=== PATIENT | female | born 1960 | race Caucasian/White ===

== ENCOUNTER 2018-08-11 08:48 | Emergency (ER) | payer BC ==
[~2018-08-11] VITALS: Ht 162.6 cm; Wt 90.4 kg
[~2018-08-11 08:48] MED LIST: DIPH-423 PO; IBUP-1051 PO; PRED50TA PO
[2018-08-11 09:19] LABS: BASOPHILS % (AUTO) 0.3 % (0-1); EOSINOPHILS # (AUTO) 0.1 X10'3 (0-0.9); EOSINOPHILS % (AUTO) 1.2 % (0-6); HEMATOCRIT 39.6 % (35.0-45.0); HEMOGLOBIN 13.5 g/dl (12.0-16.0); LYMPHOCYTES # (AUTO) 3.1 X10'3 (1.1-4.8); MEAN CORPUSCULAR HEMOGLOBIN 30.9 PG (27.0-31.0); MEAN CORPUSCULAR VOLUME 90.9 FL (78-98); MEAN PLATELET VOLUME 7.9 FL (7.4-10.4); MONOCYTES # (AUTO) 0.5 X10'3 (0-0.9); MONOCYTES % (AUTO) 6.8 % (2-12); NEUTROPHILS # (AUTO) 4.1 X10'3 (1.8-7.7); NEUTROPHILS % (AUTO) 52.7 % (42-75); PLATELET COUNT 239 X10'3 (140-440); RED BLOOD COUNT 4.36 X10'6 (4.20-5.60); RED CELL DISTRIBUTION WIDTH 12.9 % (11.5-14.5); WHITE BLOOD COUNT 7.8 X10'3 (4.5-11.0)
[2018-08-11 09:35] LABS: INR 1.1 INR; PARTIAL THROMBOPLASTIN TIME 28 SECONDS (22-32); PROTHROMBIN TIME 10.7 SECONDS (9.0-12.0)
[2018-08-11 09:40] LABS: ALANINE AMINOTRANSFERASE 21 U/L (12-78); ALBUMIN 3.7 G/DL (3.4-5.0); ALKALINE PHOSPHATASE 78 IU/L (46-116); ANION GAP 10 (8-16); ASPARTATE AMINO TRANSFERASE 16 U/L (10-37); BILIRUBIN,TOTAL 0.5 MG/DL (0.1-1.0); BLOOD UREA NITROGEN 13 MG/DL (7-18); BUN/CREATININE RATIO 17.6 (6.6-38.0); CALCIUM 9.1 MG/DL (8.5-10.1); CHLORIDE 105 MMOL/L (99-107); CREATININE 0.74 MG/DL (0.40-0.90); GLUCOSE 93 MG/DL (70-104); POTASSIUM 4.1 MMOL/L (3.5-5.1); SODIUM 141 MMOL/L (135-145); TOTAL CARBON DIOXIDE 25.9 MMOL/L (24-32); TOTAL PROTEIN 7.5 G/DL (6.4-8.2); eGFR 81 ML/MIN
[2018-08-11] MEDS ORDERED: predniSONE 20 mg tablet PO ONE (10:00)
[2018-08-11] MEDS ORDERED: ipratropium/albuterol 3ml nebule NEB ONE (10:05)
[2018-08-11] MEDS ORDERED: PRED20TA PO (12:55)
[2018-08-11] MEDS ORDERED: ALBU8.5H8 IH (12:55)
[2018-08-11] MEDS ORDERED: albuterol 2.5 MG/3 ML nebule NEB ONE (12:55)
[2018-08-11] MEDS ORDERED: AZIT-63 PO (12:55)
[2018-08-11 13:23] VITALS: BP 136/65
== END 2018-08-11 13:27 | disposition home or self-care (01) ==
LOC: ER 08:48
DX: R06.02 Shortness of breath (principal); I10 Essential (primary) hypertension; Z88.0 Allergy status to penicillin; Z88.2 Allergy status to sulfonamides; Z79.899 Other long term (current) drug therapy
CPT/HCPCS: 36415; 71045; 80053; 84484; 85025; 85610; 85730; 93005; 94640; 94760; 99284; J7512

== ENCOUNTER 2019-01-10 16:38 | Emergency (ER) | payer BC ==
[~2019-01-10] VITALS: Ht 160 cm; Wt 85.0 kg
[~2019-01-10 16:38] MED LIST changes: +ALBU8.5H8 IH
[2019-01-10] MEDS ORDERED: ipratropium/albuterol 3ml nebule NEB ONE (16:55)
[2019-01-10] MEDS ORDERED: predniSONE 20 mg tablet PO ONE (16:55)
[2019-01-10] MEDS ORDERED: HYDROcodone/acetaminophen 10/325mg tab PO ONE (16:55)
[2019-01-10] MEDS ORDERED: ALBU6.7H INH (17:59)
[2019-01-10] MEDS ORDERED: ALB0.5UD IH (17:59)
[2019-01-10 18:12] VITALS: BP 141/75
== END 2019-01-10 18:15 | disposition home or self-care (01) ==
LOC: ER 16:44
DX: J45.909 Unspecified asthma, uncomplicated (principal); I10 Essential (primary) hypertension; Z98.890 Other specified postprocedural states; Z88.0 Allergy status to penicillin; Z88.2 Allergy status to sulfonamides; Z79.899 Other long term (current) drug therapy; Z77.22 Contact with and (suspected) exposure to environmental tobacco smoke (acute) (chronic)
CPT/HCPCS: 71046; 93005; 94640; 94760; 99283; J7512